=== PATIENT | male | born 1950 | race Caucasian/White ===

== ENCOUNTER 2017-04-23 09:42 | Emergency (ER) | payer MEDICARE, SELFPAY ==
--- NOTE | 2017-04-23 10:48 | RAD ---
CHEST 2 VIEWS: DATE: 04/23/17. FINDINGS: There is a right apical infiltrate present. This area appears much more infiltrative-like than mass- like. While conventional organisms could be possible, given the location, tuberculosis must also be a consideration. The lungs are otherwise clear. There are no effusions. The heart is normal in siz e. IMPRESSION: Right apical infiltrate. Include tuberculosis in the differential diagnosis. POS: HOME
== END 2017-04-23 10:26 | disposition home or self-care (01) ==
LOC: BURERS 09:42
DX: J18.9 Pneumonia, unspecified organism (principal); F17.210 Nicotine dependence, cigarettes, uncomplicated
CPT/HCPCS: 71046